=== PATIENT | female | born 1985 | race Hispanic/Latino ===

== ENCOUNTER 2016-10-18 21:16 | Emergency (ER) | payer OTHER ==
[2016-10-18 21:23] VITALS: RESP 18; TEMP 99; O2SAT 100
--- NOTE | 2016-10-18 21:35 | ED PDOC ---
HPI: Female Pain Time Seen by Provider: 10/18/16 21:25 Chief Complaint (Nursing): Abdominal Pain Chief Complaint (Provider): with abd pain History Per: Patient Additional Complaint(s): 31-year-old female presents to emergency department with right-sided abdominal pain. Patient is currently 14 weeks . She denies vaginal bleeding. No nausea, vomiting, diarrhea or constipation. Patient denies previous miscarriage or ectopic . Patient states the pain started 5 days ago and comes and goes. She rates current pain as 5/10. Past Medical History Reviewed: Historical Data, Nursing Documentation, Vital Signs Vital Signs: Last Vital Signs Temp 99 F 10/18/16 21:19 Pulse 76 10/18/16 21:19 Resp 18 10/18/16 21:19 BP 123/72 10/18/16 21:19 Pulse Ox 100 10/18/16 21:19 - Medical History PMH: No Chronic Diseases - Surgical History Surgical History: Hernia Repair, (x 1) Other surgeries: breast augmentation - Family History Family History: States: No Known Family Hx - Living Arrangements Living Arrangements: With Family - Social History Current smoker - smoking cessation education provided: No Alcohol: None Drugs: Denies - Allergies Allergies/Adverse Reactions: Allergies Allergy/AdvReac Type Severity Reaction Status Date / Time No Known Allergies Allergy Verified 10/18/16 21:19 Review of Systems ROS Statement: Except As Marked, All Systems Reviewed And Found Negative Constitutional: Negative for: Fever Cardiovascular: Negative for: Chest Pain Respiratory: Negative for: Cough Gastrointestinal: Negative for: Nausea, Vomiting Genitourinary Female: Positive for: Pelvic Pain (14 weeks with right side pain) Neurological: Negative for: Headache, Dizziness Physical Exam - Reviewed Nursing Documentation Reviewed: Yes Vital Signs Reviewed: Yes - Physical Exam Appears: Positive for: Well, Non-toxic, No Acute Distress Skin: Negative for: Rash Eye Exam: Positive for: Normal appearance Cardiovascular/Chest: Positive for: Regular Rate, Rhythm Respiratory: Positive for: Normal Breath Sounds Gastrointestinal/Abdominal: Positive for: Soft. Negative for: Tenderness, Distended, Guarding Back: Negative for: L CVA Tenderness, R CVA Tenderness Extremity: Positive for: Normal ROM. Negative for: Pedal Edema Neurologic/Psych: Positive for: Alert, Oriented - Laboratory Results Result Diagrams: 10/18/16 22:10/18/16 22:09 Urine POC: Positive Urine dip results: Negative for: Leukocyte Esterase, Blood, Nitrate, Ketones, Glucose, Bilirubin, Protein - ECG O2 Sat by Pulse Oximetry: 100 Pulse Ox Interpretation: Normal - Other Rad OB US X-Ray: Read By Radiologist X-Ray Interpretation: see below Medical Decision Making Medical Decision Makin31 year old female, 14 weeks with abd pain Plan: Urine dip CBC CMP Beta quant OB US US: FINDINGS: Fetus: Single live intrauterine gestation. Heart rate: heart rate of 161 beats per minute. Presentation: Cephalic. Placenta: Posterior fundal. No placenta abruption. Amniotic fluid: Normal. Anatomy: No gross anomaly is appreciated. BIOMETRICS Gestational age by US: Estimated gestational age of 15 weeks 1 day by measurements. EFW: Estimated weight of 115 g. BPD: 2.9 cm, correlating with 15 weeks 1 day. HC: 1020 cm, correlating with 15 weeks 1 day. AC: 8.7 cm, correlating with 15 weeks 0 days. FL: 1.8 cm, correlating with 15 weeks 2 days. MATERNAL: Uterus: Unremarkable. No myometrial mass. Cervix: No cervical dilatation or effacement. Adnexa: Ovaries not visualized. No adnexal masses. Free fluid: No significant free fluid. IMPRESSION: 1. Single live intrauterine gestation. Patient aware of all test results, all questions answered. Advised fluids, rest and follow up with OB in 2-3 days. Disposition - Clinical Impression Clinical Impression: Abdominal pain during - Patient ED Disposition Is Patient to be Admitted: No Counseled Patient/Family Regarding: Studies Performed, Diagnosis, Need For Followup - Disposition [facility] Disposition: Routine/Home Disposition Time: 22:22 Condition: STABLE Additional Instructions: Rest and drink plenty of fluids. Follow up in 2-3 days with your OB. Instructions: Abdominal Pain in (ED) Forms: [employer] (Indonesian)
--- NOTE | 2016-10-18 22:12 | US ---
EXAM: US After First Trimester, Transabdominal CLINICAL HISTORY: 31 years old, female; Pain; Other: Abd pain; Gestational age or lmp: 07/08/16; ; Additional info: 14 weeks with abd pain TECHNIQUE: Real-time transabdominal obstetrical ultrasound of the maternal pelvis and a second or third trimester with image documentation. COMPARISON: No relevant prior studies available. FINDINGS: Fetus: Single live intrauterine gestation. Heart rate: heart rate of 161 beats per minute. Presentation: Cephalic. Placenta: Posterior fundal. No placenta abruption. Amniotic fluid: Normal. Anatomy: No gross anomaly is appreciated. BIOMETRICS Gestational age by US: Estimated gestational age of 15 weeks 1 day by measurements. EFW: Estimated weight of 115 g. BPD: 2.9 cm, correlating with 15 weeks 1 day. HC: 1020 cm, correlating with 15 weeks 1 day. AC: 8.7 cm, correlating with 15 weeks 0 days. FL: 1.8 cm, correlating with 15 weeks 2 days. MATERNAL: Uterus: Unremarkable. No myometrial mass. Cervix: No cervical dilatation or effacement. Adnexa: Ovaries not visualized. No adnexal masses. Free fluid: No significant free fluid. IMPRESSION: 1. Single live intrauterine gestation.
[2016-10-18 22:20] LABS: BASO % 0.3 % (0.0-2.0); EOS # 0.2 K/uL (0.0-0.7); EOS % 2.8 % (0.0-4.0); HEMATOCRIT 36.7 % (34.0-47.0); LYMPH # 2.7 K/uL (1.0-4.3); LYMPH % 31.8 % (20.0-40.0); MEAN CELL VOLUME 91.4 fl (81.0-99.0); MEAN CORPUSCULAR HEMOGLOBIN 31.5 pg (27.0-31.0); MEAN CORPUSCULAR HGB CONC 34.5 g/dL (33.0-37.0); MEAN PLATELET VOLUME 7.5 fl (7.2-11.7); MONO # 0.5 K/uL (0.0-0.8); MONO % 5.5 % (0.0-10.0); NEUT # 5.1 K/uL (1.8-7.0); NEUT % 59.6 % (50.0-75.0); NRBC % 0.1 % (0.0-0.0); RED CELL DISTRIBUTION WIDTH 13.7 % (11.5-14.5); WHITE BLOOD COUNT 8.6 K/uL (4.8-10.8)
[2016-10-18 22:25] LABS: ALB/GLOB RATIO 1.4 (1.0-2.1); ALKALINE PHOSPHATASE 34 U/L (38-126); ALT/SGPT 26 U/L (9-52); AST/SGOT 37 U/L (14-36); BILIRUBIN,TOTAL 0.4 mg/dl (0.2-1.3); BLOOD UREA NITROGEN 11 mg/dl (7-17); CALCIUM 9.5 mg/dL (8.4-10.2); CARBON DIOXIDE 26 mmol/L (22-30); CHLORIDE 101 mmol/L (98-107); GFR AFRICAN-AMERICAN > 60; GLUCOSE,RANDOM 94 mg/dL (65-105); SODIUM 136 mmol/l (132-148)
[2016-10-18 22:52] VITALS: BP 118/72; PULSE 88
== END 2016-10-18 22:51 | disposition home or self-care (01) ==
LOC: H.ER 21:16
DX: O26.892 Other specified pregnancy related conditions, second trimester (principal); Z3A.14 14 weeks gestation of pregnancy